=== PATIENT | female | born 1985 | race Caucasian/White ===

== ENCOUNTER 2017-03-01 20:33 | Emergency (ER) | payer MEDICAID ==
[~2017-03-01] VITALS: Wt 66.5 kg
[~2017-03-01 20:33] MED LIST: ALBU8.5H3 INH; ALBU8.5H5 IH; BECL8.7A5 INH; LEVA15HF6 INH; PRED20TA PO; PROM6.25 PO
[2017-03-01] MEDS ORDERED: ALBUTEROL 0.083% (NEB) 2.5 MG/3 ML AMP HHN STA (23:17)
[2017-03-01] MEDS ORDERED: IPRATROPIUM (NEB) 0.5 MG/2.5 ML AMP HHN ONE (23:30)
--- NOTE | 2017-03-01 23:32 | ERD ---
ER Documentation Chief Complaint Date/Time DATE: 03/01/17 TIME: 23:32 Chief Complaint sob/asthma x 1 day HPI Patient is a 31-year-old female who presents to the ED with cough and shortness of breath for 1 day. She states that she has a history of asthma and states that her symptoms and similar to having an exact asthma exacerbation. She states that she is her albuterol today but it did not help. She denies any leg pain or swelling. She denies any chest pain. Denies recent travel or recent surgeries. Denies headache or dizziness. Denies abdominal pain, nausea, vomiting or diarrhea. She does state that she is also congested in her nose. No other complaints. ROS All systems reviewed and are negative except as per history of present illness. Medications Home Meds Active Scripts Albuterol Sulfate* (Proair HFA*) 8.5 Gm Hfa.aer.ad, 2 PUFF INH Q4, #1 INHALER Prov:TIMOTHY RODRIGUEZ PA-C 03/02/17 Cetirizine Hcl* (Zyrtec*) 10 Mg Capsule, 10 MG PO DAILY, #30 TAB.CHEW Prov:TIMOTHY RODRIGUEZ PA-C 03/02/17 Benzonatate* (Tessalon Perle*) 100 Mg Capsule, 100 MG PO Q8H Y for COUGH for 14 Days, CAP Prov:TIMOTHY RODRIGUEZ PA-C 03/02/17 Prednisone* (Prednisone*) 20 Mg Tab, 40 MG PO DAILY for 4 Days, TAB Prov:ROGELIO SILVA MD 09/03/16 Albuterol Sulfate* (Proair HFA*) 8.5 Gm Hfa.aer.ad, 2 PUFF INH Q4H Y for WHEEZING AND SOB, #1 INHALER Prov:ROGELIO SILVA MD 09/03/16 Promethazine w/Codeine* (Phenergan w/Codeine* Syrup) 5 Ml Syrup, 5 ML PO Q4H Y for COUGH for 10 Days, ML Prov:JEREMY CHRISTIANSON NP 02/19/16 Prednisone* (Prednisone*) 20 Mg Tab, 60 MG PO DAILY for 4 Days, TAB Prov:JEREMY CHRISTIANSON NP 02/19/16 Prednisone* (Prednisone*) 20 Mg Tab, 40 MG PO DAILY for 4 Days, TAB Prov:ESME MCKEON DO 01/01/16 Reported Medications Albuterol Sulfate* (Albuterol Sulfate* HFA) 8.5 Gm Hfa.aer.ad, 1-2 PUFF IH Q4-6 HOURS Y for WHEEZING AND SOB, EA 09/23/14 Levalbuterol* (Xopenex* HFA) 15 Gm Inha, 2 PUFFS INH Q4H Y for WHEEZING AND SOB , EA 09/23/14 Beclomethasone Dip* (Qvar 80*) 7.3 Gm Inha, 2 PUFF INH BID, INH 09/23/14 Allergies Allergies: Coded Allergies: No Known Allergy (Verified , 03/01/17) PMhx/Soc History of Surgery: Yes (appy) Anesthesia Reaction: No Hx Neurological Disorder: No Hx Respiratory Disorders: Yes (ASTHMA) Hx Cardiac Disorders: No Hx Psychiatric Problems: No Hx Miscellaneous Medical Probl: Yes (seasonal allergies) Hx Alcohol Use: No Hx Substance Use: No Hx Tobacco Use: No Physical Exam Vitals Vital Signs Date Time Temp Pulse Resp B/P Pulse Ox O2 Delivery O2 Flow Rate FiO2 03/01/17 23:39 84 18 99 21 03/01/17 20:45 98.2 99 20 114/59 99 Physical Exam GENERAL: Well-developed, well-nourished female. Appears in no acute distress. HEAD: Normocephalic, atraumatic. EYES: Pupils are equally reactive bilaterally. EOMs grossly intact. No conjunctival erythema. ENT: Moist mucous membranes. No uvula deviation. No kissing tonsils. No exudates. NECK: Supple. No lymphadenopathy or thyromegaly. No meningismus. negative kernig. negative brudinski. LUNG: Clear to auscultation bilaterally. No rhonchi, wheezing, rales or coarse breath sounds. HEART: Regular rate and rhythm. No murmurs, rubs or gallops. Extremities: Equal pulses bilaterally. No peripheral clubbing, cyanosis or edema. No unilateral leg swelling. Negative Homans sign NEUROLOGIC: Alert and oriented. Moving all four extremities. 5/5 strength in all extremities. Normal speech. Steady gait. SKIN: Normal color. Warm and dry. No rashes or lesions. Capillary refill < 2 seconds Results 24 hrs Current Medications Medications (Trade) Dose Ordered Sig/Douglas Route PRN Reason Start Time Stop Time Status Last Admin Dose Admin Albuterol (Proventil 0.083% (Neb)) 2.5 mg ONCE STAT HHN 03/01/17 23:17 03/01/17 23:18 DC 03/01/17 23:39 Ipratropium Holiday (Atrovent 0.02% (Neb)) 0.5 mg ONCE ONCE HHN 03/01/17 23:30 03/01/17 23:31 DC 03/01/17 23:39 Procedures/MDM ER COURSE: I kept the patient and/or family informed of laboratory and diagnostic imaging results throughout the emergency room course. RT CONSULT Albuterol. Tolerated well with no adverse reaction. MEDICAL DECISION MAKING: EKG performed, read by dR PRATER 86 bpm, normal sinus rhythm, normal axis, no acute ST segment changes, no T wave inversion this is a 31-year-old female who presents with cough and asthma exacerbation. Vital signs were reviewed. Patient is afebrile. Patient is not hypoxic. Patient is not toxic or ill-appearing. Low suspicion for pneumonia, PE, pneumothorax, ACS, epiglottitis, obstruction, TB, pertussis, meningitis, sepsis. I reexamined patient after albuterol treatment and she stated improvement in her symptoms. DISCHARGE: At this time, patient is stable for discharge and outpatient management with no new complaints during the ER course. Patient was sent home with Beverly Alanis for cough, albuterol and Zyrtec patient will be discharged home with instructions to recheck for new or worsening symptoms such as fever, nausea, weakness, LOC and to follow up with primary care in the next 1-2 days. Patient was advised to return to the ER for any new or worsening symptoms. Plan was discussed and patient and/or family understands and agrees. Home instructions were given. Departure Diagnosis: Primary Impression: Asthma Asthma severity: unspecified severity Asthma complication type: uncomplicated Qualified Code: J45.909 - Uncomplicated asthma, unspecified asthma severity Condition: Stable TIMOTHY RODRIGUEZ PA-C Mar 01, 2017 23:32
[2017-03-02] MEDS ORDERED: BENZ100C70 PO
[2017-03-02] MEDS ORDERED: CETI10CA PO
[2017-03-02] MEDS ORDERED: ALBU8.5H3 INH (00:01)
[2017-03-02 00:50] VITALS: BP 121/55; PULSE 96; RESP 17; TEMP 98.3
== END 2017-03-02 01:09 | disposition home or self-care (01) ==
LOC: FTE 20:33
DX: J45.901 Unspecified asthma with (acute) exacerbation (principal)
CPT/HCPCS: 93005; 94664; Z7502; Z7610

== ENCOUNTER 2018-11-04 19:39 | Emergency (ER) | END 2018-11-04 20:42 | disposition home or self-care (01) ==